=== PATIENT | female | born 1955 | race Caucasian/White ===

== ENCOUNTER 2020-09-05 08:55 | Day surgery (SDC) | payer BC ==
[~2020-09-05 08:55] MED LIST: Lactated Ringers 1,000 ML IV SCH; Lidocaine 1%/Sod Bicarbonate in NS 8.4% 1 ML Syringe IDERM PRN; Sodium Chloride 0.9% 10 ML Syringe FLUSH PRN
--- NOTE | 2020-09-05 09:18 | PCM.PREANE ---
Preanesthetic Assessment - Procedure Proposed Procedure: screening colonoscopy - Anesthesia/Transfusion/Family Hx Anesthesia History: Prior Anesthesia Without Reaction Family History of Anesthesia Reaction: No Transfusion History: No Prior Transfusion(s) - Review of Systems General: No Symptoms Pulmonary: No Symptoms Cardiovascular: No Symptoms Gastrointestinal: No Symptoms Neurological: No Symptoms Other: Reports: Thyroid Problems, Depression, Anxiety - Physical Assessment NPO Status Date: 09/05/20 NPO Status Time: 07:20 (sip with pills) Vital Signs: 132/91 83 98% 18 Height: 5 ft 7 in Weight: 70 kg ASA Class: 2 Mental Status: Alert & Oriented x3 Airway Class: Mallampati = 1 Dentition: Reports: Normal Dentition Thyro-Mental Finger Breadths: 3 Mouth Opening Finger Breadths: 3 ROM/Head Extension: Full Lungs: Clear to Auscultation, Normal Respiratory Effort Cardiovascular: Regular Rate, Regular Rhythm - Allergies Allergies/Adverse Reactions: Allergies Allergy/AdvReac Type Severity Reaction Status Date / Time No Known Allergies Allergy Verified 09/04/20 12:50 - Blood Blood Available: No - Acknowledgements Anesthesia Type Planned: MAC Pt an Appropriate Candidate for the Planned Anesthesia: Yes Alternatives and Risks of Anesthesia Discussed w Pt/Guardian: Yes Pt/Guardian Understands and Agrees with Anesthesia Plan: Yes PreAnesthesia Questionnaire HEENT History: Reports: None Cardiovascular History: Reports: None Respiratory History: Reports: None Gastrointestinal History: Reports: Colon Polyp Genitourinary History: Reports: None MD PSYCHIATRY History: Reports: None Musculoskeletal History: Reports: None Neurological History: Reports: None Psychiatric History: Reports: Anxiety, Depression Endocrine/Metabolic History: Reports: Hypothyroidism Hematologic History: Reports: None Immunologic History: Reports: None Oncologic (Cancer) History: Reports: None Dermatologic History: Reports: None - Infectious Disease History Infectious Disease History: Reports: None - Past Surgical History Head Surgeries/Procedures: Reports: None HEENT Surgical History: Reports: None Cardiovascular Surgical History: Reports: None Respiratory Surgical History: Reports: None GI Surgical History: Reports: Colonoscopy Female Surgical History: Reports: Hysterectomy Male Surgical History: Reports: None Endocrine Surgical History: Reports: Other (See Below) Other Endocrine Surgeries/Procedures: removal of thyroid nodule Neurological Surgical History: Reports: Other (See Below) Other Neurological Surgeries/Procedures: back surgery with hardware Musculoskeletal Surgical History: Reports: Other (See Below) Other Musculoskeletal Surgeries/Procedures:: left ankle surgery with intact hardware - SUBSTANCE USE Tobacco Use Status *Q: Current Every Day Tobacco User Tobacco Use Within Last Twelve Months: Cigarettes Second Hand Smoke Exposure: Yes Days Per Week of Alcohol Use: 4 Number of Drinks Per Day: 3 (beer) Total Drinks Per Week: 12 Recreational Drug Use History: No - HOME MEDS Home Medications: Home Meds Thyroid [Brooks Thyroid] 15 mg PO DAILY 09/04/20 [History] Thyroid,Pork [Brooks Thyroid] 90 mg PO DAILY 09/04/20 [History] Venlafaxine HCl [Venlafaxine ER] 150 mg PO DAILY 09/04/20 [History] - CURRENT (IN HOUSE) MEDS Current Meds: Current Medications Lactated Ringer's (Ringers, Lactated) 1,000 mls @ 125 mls/hr IV ASDIRECTED LISANDRA Stop: 09/05/20 23:00 Lidocaine/Sodium Bicarbonate (Lidocaine 1%/Sod Bicarbonate In Ns 8.4% 1 Ml Syringe) 0.25 ml IDERM ONETIME PRN PRN Reason: Prior to IV Start Stop: 09/05/20 18:00 Sodium Chloride (Sodium Chloride 0.9% 10 Ml Syringe) 10 ml FLUSH ASDIRECTED PRN PRN Reason: Keep Vein Open Stop: 09/05/20 18:00
[2020-09-05] MEDS ORDERED: Propofol 200 MG/20 ML SDV ONE ×2 (10:06→10:34)
[2020-09-05] MEDS ORDERED: fentaNYL 100 MCG/2 ML SDV ONE (10:07)
[2020-09-05] MEDS ORDERED: Lidocaine 1% 4 ML ONE ×2 (10:07→10:49)
--- NOTE | 2020-09-05 11:03 | PCM.PRNOTE ---
- Free Text/Narrative Note: Date: 09/05/2020 Procedure: screening colonoscopy History: prior polyps 5 years ago, mother diagnosed with colon cancer in her 70s. Endoscopist: Lm Rosales MD Findings: okay prep, fair amount of bubbles. Three small benign-appearing polyps removed from rectum with cold forceps. Detailed Report: The patient was taken to the endoscopy suite and placed in left lateral decubitus position. Timeout was performed and monitored anesthesia care was initiated. Visual inspection of the anus revealed no abnormality. Digital rectal exam was unremarkable. The colonoscope was inserted and advanced to the cecum with ease. The appendiceal orifice was visualized. Prep was pretty good but there were a few areas of mucosal coverage with bubbles. Irrigation was used to expose mucosal surfaces as best as possible and look for polyps. No lesions were identified until the rectum was reached. Approximately 10 to 15 cm from the anal verge, 3 subcentimeter benign-appearing polyps were identified and removed with cold forceps. There was no significant hemorrhoidal disease appreciated air was suctioned from the colon prior to withdrawal of the scope. The patient tolerated the procedure well.
--- NOTE | 2020-09-05 12:56 | PCM48HPAN ---
Post Anesthesia Note - EVALUATION WITHIN 48HRS OF ANESTHETIC Vital Signs in Normal Range: Yes Patient Participated in Evaluation: Yes Respiratory Function Stable: Yes Airway Patent: Yes Cardiovascular Function Stable: Yes Hydration Status Stable: Yes Pain Control Satisfactory: Yes Nausea and Vomiting Control Satisfactory: Yes Mental Status Recovered: Yes Vital Signs: Last Vital Signs Temp 97.5 F 09/05/20 11:02 Pulse 84 09/05/20 11:15 Resp 16 09/05/20 11:15 BP 112/68 09/05/20 11:15 Pulse Ox 99 09/05/20 11:15
== END 2020-09-05 11:42 | disposition home or self-care (01) ==
LOC: JD.SDS 08:55
PROVIDERS: ATTEND Surgery
DX: K62.1 Rectal polyp (principal); E03.9 Hypothyroidism, unspecified; F17.210 Nicotine dependence, cigarettes, uncomplicated
CPT/HCPCS: 45380; J2704; J3010; J7120; 00812

== ENCOUNTER 2024-03-01 08:53 | Inpatient (IN) | payer MEDICARE, OTHER ==
[2024-03-01] MEDS ORDERED: Enoxaparin 30 MG/0.3 ML Syringe SUBCUT SCH (09:00)
[2024-03-01] MEDS: Ondansetron 4 MG/2 ML SDV IVPUSH ONE (09:58)
[2024-03-01] MEDS: Sodium Chloride 0.9% 1,000 ML IV SCH ×2 (10:01→16:19)
[2024-03-01 10:08] LABS: BASOPHILS ABSOLUTE AUTO 0.1 K/mm3 (0.0-0.2); BASOPHILS PERCENT AUTO 0.9 % (0.0-1.0); EOSINOPHILS ABSOLUTE AUTO 0.1 K/mm3 (0.0-0.4); HEMATOCRIT 56.4 % (37.0-47.0); HEMOGLOBIN 19.8 gm/dl (12.0-16.0); IMMATURE GRAN ABSOLUTE AUTO 0.05 K/mm3 (0.00-0.05); IMMATURE GRAN PERCENT AUTO 0.5 % (0.0-0.4); LYMPHOCYTES ABSOLUTE AUTO 3.7 K/mm3 (1.0-4.8); LYMPHOCYTES PERCENT AUTO 34.9 % (24.0-44.0); MEAN CORPUSCULAR HEMOGLOBIN 29.4 pg (28.0-32.0); MEAN CORPUSCULAR HGB CONC 35.1 g/dl (32.0-36.0); MEAN CORPUSCULAR VOLUME 83.8 fl (83.0-99.0); MEAN PLATELET VOLUME 11.8 fl (9.4-12.3); MONOCYTES PERCENT AUTO 9.8 % (0.0-8.0); NEUTROPHILS ABSOLUTE AUTO 5.6 K/mm3 (1.8-7.7); NEUTROPHILS PERCENT AUTO 52.9 % (41.0-71.0); PLATELET COUNT,PLT 184 K/mm3 (150-400); RED BLOOD CELL COUNT 6.73 M/mm3 (4.10-5.30); WHITE BLOOD CELL COUNT,WBC 10.52 K/mm3 (3.9-11.3)
[2024-03-01 10:13] LABS: ALBUMIN 4.1 g/dl (3.4-5.0); ANION GAP 23.4 (5-15); BILIRUBIN TOTAL 0.5 mg/dL (0.2-1.0); BUN/CREATININE RATIO 16.7 (14-18); CALCIUM 10.3 mg/dL (8.5-10.1); CREATININE 1.2 mg/dL (0.55-1.02); EST CRCL DRUG DOSING (CG) 41.08 mL/min; POTASSIUM,K 5.4 mEq/L (3.5-5.1); PROTEIN TOTAL,TP 8.3 g/dl (6.4-8.2)
[2024-03-01] MEDS ORDERED: Insulin Regular, Human 100 Units/ML 3 ML Vial IVPUSH ONE (10:20)
[2024-03-01] MEDS: Insulin Regular, Human 100 Units/ML 10 ML Vial IVPUSH ONE (10:42)
[2024-03-01 11:15] LABS: SLIDE REVIEW ABNORMAL SMEAR
[2024-03-01] MEDS: Lactated Ringers 1,000 ML IV ONE (11:19)
[2024-03-01] MEDS: Lactated Ringers 1,000 ML IV SCH ×2 (13:10→18:16)
[2024-03-01 13:53] LABS: ANION GAP 21.3 (5-15); CALCIUM 8.7 mg/dL (8.5-10.1); CREATININE 0.8 mg/dL (0.55-1.02); EST CRCL DRUG DOSING (CG) 61.62 mL/min; POTASSIUM,K 4.3 mEq/L (3.5-5.1)
[2024-03-01 14:07] LABS: HEMOGLOBIN A1C 12.5 %
[2024-03-01] MEDS ORDERED: Ondansetron 4 MG Tab.DIS PO PRN (15:08)
[2024-03-01] MEDS ORDERED: Ondansetron 4 MG/2 ML SDV IV PRN (15:08)
[2024-03-01] MEDS ORDERED: Acetaminophen 325 MG Tab PO PRN (15:08)
[2024-03-01] MEDS ORDERED: 50% Dextrose in Water 50 ML Syringe IVPUSH PRN (15:12)
[2024-03-01 15:51] LABS: CREATININE,URINE RAND 38.1 mg/dL (30.0-125.0); MICROALBUMIN,URINE RANDOM 22.1 mg/L (1.3-20.0)
[2024-03-01 16:00] LABS: TSH 4.915 uIU/mL (0.358-3.74)
[2024-03-01] MEDS: Nicotine 14 MG/24 Hr Patch TRDERM SCH (16:19)
[2024-03-01] MEDS: Insulin Glargine,Human Rec. Analog 100 Units/ML 3 ML Pen SUBCUT SCH (16:19)
[2024-03-01 16:20] LABS: T4 FREE 1.37 ng/dL (0.76-1.46)
[2024-03-01] MEDS: Insulin Lispro 100 Unit/ML 3 ML KwikPen SUBCUT SCH (16:35)
[2024-03-01] MEDS: Venlafaxine 75 MG Cap.ER PO ONE (17:10)
[2024-03-01] MEDS: Melatonin 3 MG Tab PO PRN (20:23)
[2024-03-01] MEDS: Docusate Sodium 100 MG Cap PO PRN (20:40)
[2024-03-02 04:40] LABS: BASOPHILS ABSOLUTE AUTO 0.1 K/mm3 (0.0-0.2); BASOPHILS PERCENT AUTO 0.7 % (0.0-1.0); EOSINOPHILS ABSOLUTE AUTO 0.1 K/mm3 (0.0-0.4); EOSINOPHILS PERCENT AUTO 1.5 % (0.0-6.0); HEMATOCRIT 40.2 % (37.0-47.0); IMMATURE GRAN ABSOLUTE AUTO 0.02 K/mm3 (0.00-0.05); IMMATURE GRAN PERCENT AUTO 0.2 % (0.0-0.4); LYMPHOCYTES ABSOLUTE AUTO 3.2 K/mm3 (1.0-4.8); LYMPHOCYTES PERCENT AUTO 36.2 % (24.0-44.0); MEAN CORPUSCULAR HGB CONC 34.8 g/dl (32.0-36.0); MEAN CORPUSCULAR VOLUME 83.4 fl (83.0-99.0); MEAN PLATELET VOLUME 11.4 fl (9.4-12.3); MONOCYTES ABSOLUTE AUTO 0.9 K/mm3 (0.0-0.8); MONOCYTES PERCENT AUTO 10.6 % (0.0-8.0); NEUTROPHILS ABSOLUTE AUTO 4.4 K/mm3 (1.8-7.7); NEUTROPHILS PERCENT AUTO 50.8 % (41.0-71.0); PLATELET COUNT,PLT 172 K/mm3 (150-400); RED BLOOD CELL COUNT 4.82 M/mm3 (4.10-5.30); WHITE BLOOD CELL COUNT,WBC 8.71 K/mm3 (3.9-11.3)
[2024-03-02 05:12] LABS: A/G RATIO 0.9 (1-2); ALBUMIN 2.6 g/dl (3.4-5.0); ANION GAP 16.9 (5-15); BILIRUBIN TOTAL 0.4 mg/dL (0.2-1.0); BUN/CREATININE RATIO 11.4 (14-18); CALCIUM 8.3 mg/dL (8.5-10.1); CREATININE 0.7 mg/dL (0.55-1.02); EST CRCL DRUG DOSING (CG) 74.33 mL/min; MAGNESIUM 1.4 mg/dL (1.8-2.4); POTASSIUM,K 3.9 mEq/L (3.5-5.1); PROTEIN TOTAL,TP 5.4 g/dl (6.4-8.2)
[2024-03-02] MEDS: Magnesium Sulfate/Water Premix 4 GM in Premix Bag 1 BAG IV ONE (08:59)
[2024-03-02] MEDS ORDERED: VENLAFAXINE HCL 150 MG PO SCH (09:00)
[2024-03-02] MEDS ORDERED: Levothyroxine 112 MCG Tab PO SCH (09:00)
[2024-03-02] MEDS: Venlafaxine 75 MG Cap.ER PO SCH (09:00)
[2024-03-02] MEDS: Cholecalciferol (Vitamin D3) 25 MCG Tab PO SCH (09:01)
[2024-03-02] MEDS: Enoxaparin 40 MG/0.4 ML Syringe SUBCUT SCH (09:01)
[2024-03-02] MEDS: Insulin Glargine,Human Rec. Analog 100 Units/ML 3 ML Pen SUBCUT SCH (09:02)
[2024-03-02] MEDS ORDERED: Acetaminophen 325 MG Tab PO PRN (09:56)
[2024-03-02] MEDS: Polyethylene Glycol 3350 Powder 17 GM Packet PO PRN (20:43)
[2024-03-03 04:49] LABS: BASOPHILS PERCENT AUTO 0.6 % (0.0-1.0); EOSINOPHILS ABSOLUTE AUTO 0.1 K/mm3 (0.0-0.4); EOSINOPHILS PERCENT AUTO 1.5 % (0.0-6.0); HEMATOCRIT 38.3 % (37.0-47.0); HEMOGLOBIN 13.7 gm/dl (12.0-16.0); IMMATURE GRAN ABSOLUTE AUTO 0.01 K/mm3 (0.00-0.05); IMMATURE GRAN PERCENT AUTO 0.1 % (0.0-0.4); LYMPHOCYTES ABSOLUTE AUTO 2.5 K/mm3 (1.0-4.8); LYMPHOCYTES PERCENT AUTO 36.4 % (24.0-44.0); MEAN CORPUSCULAR HEMOGLOBIN 29.5 pg (28.0-32.0); MEAN CORPUSCULAR HGB CONC 35.8 g/dl (32.0-36.0); MEAN CORPUSCULAR VOLUME 82.4 fl (83.0-99.0); MEAN PLATELET VOLUME 11.2 fl (9.4-12.3); MONOCYTES ABSOLUTE AUTO 0.6 K/mm3 (0.0-0.8); MONOCYTES PERCENT AUTO 8.6 % (0.0-8.0); NEUTROPHILS ABSOLUTE AUTO 3.6 K/mm3 (1.8-7.7); NEUTROPHILS PERCENT AUTO 52.8 % (41.0-71.0); PLATELET COUNT,PLT 151 K/mm3 (150-400); RED BLOOD CELL COUNT 4.65 M/mm3 (4.10-5.30); WHITE BLOOD CELL COUNT,WBC 6.84 K/mm3 (3.9-11.3)
[2024-03-03 05:22] LABS: A/G RATIO 0.9 (1-2); ALBUMIN 2.5 g/dl (3.4-5.0); ANION GAP 10.7 (5-15); BILIRUBIN TOTAL 0.4 mg/dL (0.2-1.0); BUN/CREATININE RATIO 12.5 (14-18); CALCIUM 8.3 mg/dL (8.5-10.1); CREATININE 0.4 mg/dL (0.55-1.02); EST CRCL DRUG DOSING (CG) 131.15 mL/min; MAGNESIUM 1.6 mg/dL (1.8-2.4); POTASSIUM,K 3.7 mEq/L (3.5-5.1); PROTEIN TOTAL,TP 5.3 g/dl (6.4-8.2)
[2024-03-03] MEDS: Levothyroxine 125 MCG Tab PO SCH (06:21)
[2024-03-03] MEDS ORDERED: Magnesium Sulfate (4.06 MEQ/ML) 5 GM/10 ML SDV IV ONE (07:30)
[2024-03-03] MEDS: Insulin Glargine,Human Rec. Analog 100 Units/ML 3 ML Pen SUBCUT SCH (08:14)
[2024-03-03] MEDS: Magnesium Sulfate/Water Premix 4 GM in Premix Bag 1 BAG IV ONE (08:37)
[2024-03-03] MEDS: Magnesium Oxide 400 MG Tab PO ONE (08:43)
[2024-03-03] MEDS: Potassium Chloride 20 MEQ Tab.ER PO ONE (08:43)
[2024-03-03] MEDS ORDERED: Insulin Glargine,Human Rec. Analog 100 Units/ML 3 ML Pen SUBCUT SCH (09:00)
== END 2024-03-03 12:20 | disposition home or self-care (01) | DRG 637 ==
LOC: JD.ED 08:53 → JD.MS 15:05
PROVIDERS: ADMIT Internal Medicine; ATTEND Internal Medicine
DX: E11.65 Type 2 diabetes mellitus with hyperglycemia (principal); U07.1 COVID-19; R73.9 Hyperglycemia, unspecified; E03.9 Hypothyroidism, unspecified; N17.9 Acute kidney failure, unspecified; R64 Cachexia; Z79.890 Hormone replacement therapy; E86.0 Dehydration; F41.9 Anxiety disorder, unspecified; F32.A Depression, unspecified; I10 Essential (primary) hypertension; M81.0 Age-related osteoporosis without current pathological fracture; E06.3 Autoimmune thyroiditis; E78.00 Pure hypercholesterolemia, unspecified; F17.210 Nicotine dependence, cigarettes, uncomplicated; R63.4 Abnormal weight loss; I95.9 Hypotension, unspecified; L80 Vitiligo; E83.42 Hypomagnesemia; Z79.899 Other long term (current) drug therapy; Z86.010 Personal history of colon polyps; Z90.710 Acquired absence of both cervix and uterus; Z98.890 Other specified postprocedural states; Z87.81 Personal history of (healed) traumatic fracture; Z68.21 Body mass index [BMI] 21.0-21.9, adult
CPT/HCPCS: 36415; 71045; 80048; 80053; 82010; 82043; 82947; 83036; 83690; 84439; 84443; 85025; 96361; 96374; 99285; J1815; J2405; J7030; J7120 ×2; 83735; A9270-GY; J1650; J3475; J7040